=== PATIENT | female | born 1975 | race Caucasian/White ===

== ENCOUNTER 2021-01-14 19:12 | Observation (INO) | payer OTHER, SELFPAY ==
--- NOTE | ~2021-01-14 | US_ITS ---
EXAMINATION: US abdomen limited DATE: 01/15/2021 07:44 INDICATION: Acute cholecystitis TECHNIQUE: Multiple grayscale and Doppler ultrasound images of the abdomen were obtained. COMPARISON: CT dated 01/14/2021 FINDINGS: The pancreatic head and body are normal in appearance. The pancreatic tail is not visualized. Liver has normal echogenicity and contour, with a smooth surface. No liver lesion identified. No intrahepat ic biliary duct dilation suspected. Portal venous flow was seen in the hepatopetal, normal direction and has normal Doppler waveform. Multiple shadowing gallstones within the gallbladder which is dilate d to 4.9 cm diameter with mild wall thickening and trace pericholecystic fluid suspicious for acute c holecystitis. Sonographic Davis sign was reported as negative by the manager learning.The common bile monica t measures 3 mm in diameter which is normal. IMPRESSION: 1. No urolithiasis with dilated gallbladder, mild gallbladder wall thickening and trace pericholecyst ic fluid, all suspicious for acute cholecystitis. Sonographic Davis sign was reported as negative by the manager learning however patient was reportedly on analgesics which could result in false negative as sessment. Reviewed, dictated and finalized at location A. IMPRESSION: 1. No urolithiasis with dilated gallbladder, mild gallbladder wall thickening a nd trace pericholecystic fluid, all suspicious for acute cholecystitis. Sonogra phic Davis sign was reported as negative by the manager learning however patient wa s reportedly on analgesics which could result in false negative assessment.
--- NOTE | ~2021-01-14 | CT_ITS ---
EXAMINATION: CT abdomen pelvis w con DATE: 01/14/2021 20:42 INDICATION: Flank pain. Hematuria. TECHNIQUE: Computed tomography (CT) of the abdomen and pelvis was performed with 100 mL Omnipaque 350 intravenous contrast. Automated exposure control and iterative reconstruction technique were employe d. The dose-length product was 734.52 mGy-cm. COMPARISON: None. FINDINGS: The visualized portions of the lung bases demonstrate calcified left lung nodules, consiste nt with old granulomatous disease. No pleural effusion. The heart size is normal. No pericardial effu joesph. The liver is normal. Calcifications in the spleen are consistent with old granulomatous disease . The gallbladder is distended and demonstrates wall thickening, consistent with acute cholecystitis. The pancreas, adrenal glands, and kidneys are normal. There are no dilated loops of bowel. The appen dionisio is normal. There are no pathologically enlarged lymph nodes. There is no free intraperitoneal flu id. There is mild thoracolumbar spondylosis. IMPRESSION: 1. Acute cholecystitis. Reviewed, dictated and finalized at location A. IMPRESSION: 1. Acute cholecystitis.
[2021-01-14 19:22] VITALS: BP 148/74; PULSE 64; RESP 18; TEMP 36.6; O2SAT 100
--- NOTE | 2021-01-14 19:39 | PC.NURSE ---
pt presents to ed c/o pain to upper back bilaterally. reports she woke up with this pain 2 days ago. denies any urinary symptoms. hx of utis. denies hx of kidney stones. denies any other symptoms.
--- NOTE | 2021-01-14 19:46 | ED.BACK ---
HPI - Back Pain/Injury General Chief Complaint: Back Pain/Injury <Daphne Tee PA-C - Last Filed: 01/14/21 22:05> Stated Complaint: upper back pain <KELLY Thompson Last Filed: 01/14/21 22:05> Time Seen by Provider: 01/14/21 19:29 <KELLY Thompson Last Filed: 01/14/21 22:05> Source: patient <KELLY Thompson Last Filed: 01/14/21 22:05> Mode of arrival: ambulatory <KELLY Thompson Last Filed: 01/14/21 22:05> Limitations: no limitations <KELLY Thompson Last Filed: 01/14/21 22:05> History of Present Illness HPI Narrative: This is a 45 year old female that presents to the ER for mid back pain present since yesterday. No known injury or trauma. Reports pain is sharp and constant. She took Ibuprofen with little relief. Also reports upper abdominal discomfort. She was seen at the urgent care today and sent here for further evaluation. Denies fever, chest pain, shortness of breath, vomiting, dysuria, hematuria, or lower extremity edema. <KELLY Thomspon Last Filed: 01/14/21 22:05> Related Data Allergies/Adverse Reactions: Allergies Allergy/AdvReac Type Severity Reaction Status Date / Time No Known Allergies Allergy Unknown Verified 03/26/03 07:12 DENIES ANY DRUG,FOOD,OR Allergy Mild Uncoded 02/06/03 16:13 LATEX ALLERGIES <KELLY Thompson Last Filed: 01/14/21 22:05> Review of Systems Review of Systems: CONSTITUTIONAL: Denies fever CARDIOVASCULAR: Denies chest pain, or edema. RESPIRATORY: Denies dyspnea. GASTROINTESTINAL: Reports abdominal pain. Denies nausea, vomiting, or diarrhea. GENITOURINARY: Denies dysuria or hematuria. SKIN: Denies rash MUSCULOSKELETAL: Reports back pain, joint pain, and myalgia. NEUROLOGIC: Denies numbness, or weakness. <KELLY Thompson Last Filed: 09/03/21 22:05> All systems reviewed & are unremarkable except as noted in HPI and below <Daphne Tee PA-C - Last Filed: 01/14/21 22:05> [facility] Surgical History Surgical History: Surgical History (Updated 01/14/21 @ 19:50 by Daphne Tee PA-C) History of section <Daphne Tee PA-C - Last Filed: 01/14/21 22:05> Social History Social History: Social History (Updated 01/14/21 @ 19:49 by Daphne Tee PA-C) Substance use: never <Daphne Tee PA-C - Last Filed: 01/14/21 22:05> Exam Narrative: GENERAL: Well-appearing, well-nourished, and in no acute distress. HEAD: Normocephalic, atraumatic. EYES: PERRLA and EOMI. CHEST: Clear to auscultation. No respiratory distress. No wheezes rales or rhonchi HEART: Regular rate and rhythm. No murmur heard. Normal peripheral pulses. ABDOMEN: Soft, nondistended, normal active bowel sounds. Tender to palpation in the epigastrium, without guarding. No CVA tenderness EXTREMITIES: Normal range of motion. No edema. SKIN: Warm, dry, no rash. NEURO: No focal deficits. Alert and oriented x3. PSYCH: Normal mood and affect <Daphne Tee PA-C - Last Filed: 01/14/21 22:05> Course LEAD C DEVELOPER/PA Physician Supervision For this encounter, I have reviewed the PA documentation, treatment plan and medical decision making: And I have had [id number] time with the patient. On exam the abdomen is soft with tenderness in the right upper quadrant no tenderness right lower quadrant, left lower quadrant left upper quadrant no rebound or guarding discussed with patient plan for admission and evaluation by general surgery all questions were answered patient agreement at this time <Sanjeev Figueroa DO - Last Filed: 01/14/21 22:01> Consultations Consultation #1: Spoke with Dr. Gorman about patient and workup who will admit for further management of acute cholecystitis. Would patient to remain NPO, be started on fluids and antibiotics <Daphne Tee PA-C - Last Filed: 01/14/21 22:05> Date: 01/14/21 <Daphne Tee PA-C - Last Filed: 01/14/21 22:05> Time: :
[2021-01-14 19:57] LABS: Basophils Percent Auto 0.4 % (0.2-1.2); Eosinophils Absolute Auto 0.1 K/mm3 (0-0.3); Eosinophils Percent Auto 0.9 % (0-4.4); Hematocrit 37.9 % (37.0-47.0); Hemoglobin 11.9 g/dL (12.0-15.0); Immature Granulocyte Absolute 0.04 K/mm3 (0.00-0.031); Immature Granulocyte Percent A 0.4 % (0-0.5); Lymphocytes Absolute Auto 1.91 K/mm3 (0.9-3.2); Lymphocytes Percent Auto 19.4 % (18.3-44.2); Mean Corpuscular HGB Conc 31.4 g/dl (32-36); Mean Corpuscular Hemoglobin 26.2 pg (26-34); Mean Corpuscular Volume 83.3 fl (80-100); Mean Platelet Volume 10.3 fl (7.4-10.4); Monocytes Absolute Auto 0.5 K/mm3 (0.1-0.6); Monocytes Percent Auto 4.8 % (2.6-8.5); Neutrophils Absolute Auto 7.3 K/mm3 (1.3-6.7); Neutrophils Percent Auto 74.1 % (45.5-73.1); Platelet Count Result 284 k/mm3 (150-375); Red Blood Count 4.55 M/mm3 (4.2-5.4); Red Cell Distribution Width 15.8 % (11.5-14.5); White Blood Count 9.9 K/mm3 (4.5-10.0)
[2021-01-14 20:00] LABS: Add Urine Microscopic? YES; Appearance Urine Clear (Clear); Bilirubin Urine Negative (Negative); Blood Urine 1+ (Negative); Color Urine Colorless (Yellow); Glucose Urine UA Negative (Negative); Ketones Urine Negative (Negative); Leukocyte Esterase Ur Negative LEU/UL (Negative); Nitrate Urine Negative (Negative); Protein Urine Negative (Negative); Urobilinogen Urine Negative mg/dL (<2.0); WBC Urine 0-3 /hpf
[2021-01-14 20:02] VITALS: BP 141/75; PULSE 53; RESP 20; O2SAT 100
[2021-01-14 20:03] LABS: INR 0.9; Prothrombin Time 12.3 Seconds (11.1-14.7)
[2021-01-14 20:04] LABS: Partial Thromboplastin Time 27.2 SECONDS (22.3-36.8)
[2021-01-14] MEDS: MORPHINE SULFATE (*CRX) 4 MG/ML INJ IV PUSH ×2 (20:05→22:25)
[2021-01-14] MEDS: ONDANSETRON INJ 4 MG/2 ML VIAL IV PUSH (20:05)
[2021-01-14 20:06] LABS: Alanine Aminotransferase 15 U/L (4-35); Albumin Level 4.7 g/dL (3.5-5.1); Alkaline Phosphatase 62 U/L (38-126); Anion Gap 9 mmol/L (8-16); Aspartate Amino Transferase 29 U/L (14-36); Bilirubin,Total 0.5 mg/dL (0.2-1.3); Blood Urea Nitrogen 8 mg/dL (7-17); Calcium 9.6 mg/dL (8.4-10.2); Carbon Dioxide 26 mmol/L (22-30); Chloride 98 mmol/L (98-107); D Dimer 0.33 ug/mL (<0.48); Estimated Glomerular Filt Rate > 60; Glucose 107 mg/dL (65-110); Lipase 55 U/L (23-300); Potassium 3.7 mmol/L (3.4-5.0); Sodium 133 mmol/L (137-145)
[2021-01-14 20:08] LABS: Specific Grav Ur 1.004 (1.001-1.035)
[2021-01-14] MEDS: diazePAM INJ (*CRX) 10 MG/2 ML SYRINGE 5 MG IV PUSH (21:01)
[2021-01-14 21:33] VITALS: PULSE 55; RESP 16; O2SAT 98
[2021-01-14] MEDS: KETOROLAC 30 MG/ML VIAL (*BKC) IV PUSH (21:59)
[2021-01-14] MEDS: PROCHLORPERAZINE EDISYLATE 10 MG/2 ML VIAL IV PUSH (22:35)
--- NOTE | 2021-01-14 23:08 | ADMGEN ---
This patient, Di Gonzalez, was admitted to 2 Medical Room 260-01 @[id number] . Patient/family oriented to hospital policies and general routines including ID bracelet, bed and alarms, visiting hours, pain management, procedures, bathroom and other care routines, personal items, smoking policy, room service/diet, and visiting hours. Information on how to activate the Rapid Response Team has been discussed. Patient/Family are encouraged to report perceived risks to care and to ask questions if they do not understand what they are told or what they should do.
[2021-01-14 23:13] VITALS: BP 119/70; PULSE 58; RESP 20; TEMP 36; O2SAT 99
[2021-01-14 23:14] VITALS: BMI 34.9
[2021-01-14 23:15] VITALS: BP 119/70; PULSE 58; RESP 20; TEMP 36; O2SAT 99; BMI 34.9
[2021-01-14] MEDS: SODIUM CHLORIDE 0.9% IV 1,000 ML 125 ML IV CONT (23:29)
[2021-01-15] VITALS (17 sets, daily range): BP systolic 95–130; BP diastolic 57–69; PULSE 58–76; RESP 14–20; TEMP 36.3–36.6; O2SAT 97–100
[2021-01-15] MEDS: MORPHINE SULFATE (*CRX) 4 MG/ML INJ IV PUSH ×2 (00:57→04:22)
[2021-01-15] MEDS: ONDANSETRON INJ 4 MG/2 ML VIAL IV PUSH ×3 (00:57→12:05)
--- NOTE | 2021-01-15 07:20 | PM.IMHP ---
H&P: HPI History of Present Illness Date/Time: 01/15/21 07:20 Chief Complaint: Right flank and right upper quadrant pain Narrative: This is a 45-year-old woman who presented to the emergency department overnight with right upper quadrant abdominal pain. She states that on 01/13/2021 she woke up in the morning with back pain. Pain continued to progress throughout the day. She was also experiencing nausea and vomiting. Her pain was also located in the right upper quadrant region. She thought that maybe it was a kidney stone due to the back pain and went to the urgent care. She was then referred to the emergency department for further workup. She has never had pain like this before. She does not recall anything that she ate the night before that could have caused this pain. She does have a family history of gallbladder problems in her mother. Since being admitted she is feeling slightly improved. She last received pain meds about 3 hours ago and does not feel too much pain currently. Review of Systems Review of Systems: All systems reviewed & are unremarkable except as noted in HPI and below Eyes: Eyes: Denies change in vision ENT: Denies hearing loss, Denies neck pain and Denies sore throat Cardiovascular: Cardiovascular: Denies chest pain and Denies dyspnea Respiratory: Respiratory: Denies cough, Denies dyspnea and Denies wheezing Gastrointestinal: Gastrointestinal: Reports as per HPI Genitourinary: Genitourinary: Denies hematuria and Denies dysuria Musculoskeletal: Musculoskeletal: Denies arthralgias, Denies joint swelling and Denies neck pain Allergic/Immunologic: Allergic/Immunologic: Denies wheezing PMFSH Past Medical History Medical History Post herpetic neuralgia Surgical History Surgical History History of section History of open heart surgery Age 33 years old Family History Family History Mother Breast cancer Social History Social History Smoking status: Never smoker Alcohol intake: never Substance use: never Substance use type: does not use Spiritual care concerns: No Meds Home Medications and Allergies Home Medications Medication Instructions Recorded Confirmed Type alprazolam 0.25 mg PO HS PRN 01/14/21 01/14/21 History gabapentin 300 mg PO BID PRN 01/14/21 01/14/21 History Allergies Allergy/AdvReac Type Severity Reaction Status Date / Time egg Allergy Diarrhea Verified 01/14/21 23:15 soy Allergy Nausea Verified 01/14/21 23:15 Vital Signs Vital Signs - 24 hr 01/14/21 19:22 01/14/21 20:02 01/14/21 21:33 Temperature 36.6 C Pulse Rate 64 53 L 55 L Respiratory Rate 18 20 16 Blood Pressure 148/74 H 141/75 H Pulse Oximetry 100 100 98 01/14/21 23:13 01/14/21 23:15 01/15/21 05:15 Temperature 36.0 C L 36.0 C L 36.4 C Pulse Rate 58 L 58 L 58 L Respiratory Rate 20 20 20 Blood Pressure 119/70 119/70 125/68 Pulse Oximetry 99 99 100 Exam Const: General: alert; No acute distress Orientation/consciousness: patient oriented x3 Limitations: no limitations HENMT: Head: normocephalic and atraumatic Ears: hearing grossly normal bilaterally General nose exam: Normal external nose present and Normal nares present Mouth: Yes Normal oral and palatal mucosa present and Yes moist mucous membranes Eyes: General: appearance normal, both eyes and all related structures Conjunctivae: conjunctivae normal Sclera: sclerae normal Pupils: Equal, round and reactive pupils present EOM: EOMs intact bilaterally Neck: Neck: normal visual inspection, full ROM, no lymphadenopathy, supple and no JVD Lymphatic: no lymphadenopathy noted Chest: Chest palpation & inspection: normal inspection of the chest Resp: Effort & Inspection: normal respi
[2021-01-15] MEDS: SODIUM CHLORIDE 0.9% IV 1,000 ML 125 ML IV CONT (07:48)
[2021-01-15] MEDS: KETOROLAC 30 MG/ML VIAL (*BKC) IV PUSH (07:50)
--- NOTE | 2021-01-15 08:33 | WPDHPUPDATE1 ---
History and Physical Update Update Date/Time: 01/15/21 08:33 I spoke to patient after u/s. She does have evidence of gallstones and cholecystitis. She would like to proceed with surgery. I have recommended Laparoscopic cholecystectomy, possible open. History and Physical has been reviewed, including an updated exam of the patient. There are NO changes in the patient's condition. Risks, benefits, and alternatives have been discussed and questions answered. Patient agrees to proceed with procedure.
--- NOTE | 2021-01-15 08:35 | PC.NURSE ---
To OR via bed. Report given to Arminda KOLB LACE ROLLER OPERATOR. Voiding without difficulty.
[2021-01-15] MEDS: LACTATED RINGERS 1,000 ML 30 ML IV CONT (08:45)
--- NOTE | 2021-01-15 08:56 | WPDANESEPPF ---
Anes - Initial Pre Proc Eval Procedure: Operation Date: 01/15/21 09:15 Proposed Procedures p Laparoscopic Cholecystectomy - Hipolito Gorman DO Date/Time: 01/15/21 08:56 Surgeon: Hipolito Gorman DO Pre Op Diagnosis: Acute Cholecystitis Patient Data Age: 45 Gender: F Height: 1.6 m Weight: 89.4 kg Last Vital Signs Temp 36.4 C 01/15/21 05:15 Pulse 58 L 01/15/21 05:15 Resp 20 01/15/21 05:15 BP 125/68 01/15/21 05:15 Pulse Ox 100 01/15/21 05:15 Allergies Allergy/AdvReac Type Severity Reaction Status Date / Time egg Allergy Diarrhea Verified 01/14/21 23:15 soy Allergy Nausea Verified 01/14/21 23:15 Home Medications Medication Instructions Recorded Confirmed Type alprazolam 0.25 mg PO HS PRN 01/14/21 01/14/21 History gabapentin 300 mg PO BID PRN 01/14/21 01/14/21 History Laboratory Tests 01/14/21 01/14/21 01/14/21 19:49 19:49 19:49 WBC 9.9 K/mm3 K/mm3 (4.5-10.0) RBC 4.55 M/mm3 M/mm3 (4.2-5.4) Hgb 11.9 g/dL L g/dL (12.0-15.0) Hct 37.9 % % (37.0-47.0) MCV 83.3 fl fl (80-100) MCH 26.2 pg pg (26-34) MCHC 31.4 g/dl L g/dl (32-36) RDW 15.8 % H % (11.5-14.5) Plt Count 284 k/mm3 k/mm3 (150-375) MPV 10.3 fl fl (7.4-10.4) Immature Gran % (Auto) 0.4 % % (0-0.5) Neut % (Auto) 74.1 % H % (45.5-73.1) Lymph % (Auto) 19.4 % % (18.3-44.2) Josephine % (Auto) 4.8 % % (2.6-8.5) Eos % (Auto) 0.9 % % (0-4.4) Baso % (Auto) 0.4 % % (0.2-1.2) Lymph # (Auto) 1.91 K/mm3 K/mm3 (0.9-3.2) Josephine # (Auto) 0.5 K/mm3 K/mm3 (0.1-0.6) Eos # (Auto) 0.1 K/mm3 K/mm3 (0-0.3) Baso # (Auto) 0.0 K/mm3 K/mm3 (0.0-0.1) Abs Immat Gran (auto) 0.04 K/mm3 H K/mm3 (0.00-0.031) Absolute Neuts (auto) 7.3 K/mm3 H K/mm3 (1.3-6.7) Absolute Nucleated RBC 0.0 K/mm3 K/mm3 (0.0-0.012) Nucleated RBC % 0.0 % % (0.0-0.2) PT 12.3 Seconds Seconds (11.1-14.7) INR 0.9 APTT 27.2 SECONDS SECONDS (22.3-36.8) D-Dimer 0.33 ug/mL ug/mL (<0.48) Sodium Potassium Chloride Carbon Dioxide Anion Gap BUN Creatinine Estim Creat Clear Calc Estimated GFR Glucose Calcium Total Bilirubin AST ALT Alkaline Phosphatase Total Protein Albumin Lipase Urine Color Colorless (Yellow) Urine Appearance Clear (Clear) Urine pH 6.0 (5.0-9.0) Ur Specific Hewitt 1.004 (1.001-1.035) Urine Protein Negative mg/dL mg/dL (Negative) Urine Glucose (UA) Negative mg/dL mg/dL (Negative) Urine Ketones Negative mg/dL mg/dL (Negative) Ur Blood (Man) 1+ H (Negative) Urine Nitrate Negative (Negative) Urine Bilirubin Negative (Negative) Urine Urobilinogen Negative mg/dL mg/dL (<2.0) Leukocyte Esterase Rfl Negative KAY/UL KAY/UL (Negative) Urine WBC 0-3 /hpf /hpf 01/14/21 19:49 WBC RBC Hgb Hct MCV MCH MCHC RDW Plt Count MPV Immature Gran % (Auto) Neut % (Auto) Lymph % (Auto) Josephine % (Auto) Eos % (Auto) Baso % (Auto) Lymph # (Auto) Josephine # (Auto) Eos # (Auto) Baso # (Auto) Abs Immat Gran (auto) Absolute Neuts (auto) Absolute Nucleated RBC Nucleated RBC % PT INR APTT D-Dimer Sodium 133 mmol/L L mmol/L (137-145) Potassium 3.7 mmol/L mmol/L (3.4-5.0) Chloride 98 mmol/L mmol/L (98-107)
[2021-01-15] MEDS: ceFAZolin 2 GM/D5W 50 ML 2 GM/50 ML BAG IVPB (09:15)
[2021-01-15] MEDS: BUPIVACAINE/EPINEPHRINE 0.25% 50 ML VIAL 30 ML INFILTRATE (09:31)
--- NOTE | 2021-01-15 10:13 | W.PM.PROC2 ---
Procedure Note - Detailed Date of Procedure 01/15/21 Pre-op Diagnosis Acute Cholecystitis Post-op Diagnosis same Procedure Performed Laparoscopic Cholecystectomy Surgeon Hipolito Gorman, DO Anesthesia general and local (0.25% bupivacaine with epinephrine) Indications This is a 45-year-old woman who presented to the emergency department overnight with right upper quadrant abdominal pain for the past 2 days. Her white blood count and liver enzymes were normal, but CT of her abdomen and pelvis showed evidence of acute cholecystitis. A gallbladder ultrasound was also obtained this morning and this confirmed signs of acute cholecystitis with cholelithiasis. Discussions were made with the patient about treatment options and decision was made to proceed with laparoscopic cholecystectomy, possible open. Findings Laparoscopic cholecystectomy was performed. The gallbladder appeared tense and dilated. It was aspirated with a laparoscopic aspirating needle to decompress the gallbladder. There were several medium-sized gallstones within the gallbladder and the gallbladder itself was very elongated and enlarged. The gallbladder wall was indurated and edematous. The cystic duct appeared normal in size. The gallbladder was removed and sent to the lab for pathology. Description of Procedure Procedure as well as risks, benefits, and alternatives were discussed with patient. Written consent was obtained and placed in chart prior to procedure. The patient was brought back to surgical suite. Patient was placed in supine position on operating table. Time-out was done to confirm patient and procedure. Patient was then intubated by the anesthesia department. Abdomen was prepped and draped in sterile fashion using chlorhexidine prep. 0.5% bupivacaine with epinephrine was infiltrated at each site of incision. A 5 millimeter incision was made near the umbilicus, and a 5 millimeter Optiview trocar was advanced through the abdominal layers under direct visualization. Once inside the abdominal cavity, carbon dioxide was insufflated to create a pneumoperitoneum. The camera was inserted and the abdomen was inspected. No immediate abnormalities were identified. The patient was placed in reverse Trendelenburg position and rotated slightly to the left. An 11 millimeter incision was made in the subxiphoid region, and an 11 millimeter trocar was inserted under direct visualization. Two 5 millimeter incisions were made in the right upper quadrant, and two 5 millimeter trocars were inserted under direct visualization. The gallbladder was identified and grasped at the fundus and retracted superiorly. It was then grasped at the infundibulum retracted laterally. Careful dissection around the neck of the gallbladder was performed using blunt dissection with a [place] grasper and hook electrocautery. The cystic duct was identified, and a window was created behind it. The cystic artery was also identified and a window was created behind it. The critical view of safety was identified, visualizing the cystic duct running directly into the neck of the gallbladder, and the cystic artery running directly into the wall of the gallbladder. A 5 millimeter clip clinical molecular geneticist was then used to place 2 clips proximally and 1 clip distally on both the cystic duct and cystic artery. They were then both transected using endoscopic scissors. Once safely away from the francisco hepatitis, the gallbladder was dissected free from the liver bed using hook electrocautery. Hemostasis was achieved along the way. The gallbladder was removed completely and then removed through the subxiphoid port. The liver bed was then inspected. Hemostasis appeared adequate, and our clips appeared secure. The area was gently irrigated with sterile saline. No other abnormalities were seen. The patient was flattened out in bed, and 1 final inspection was made around the abdominal cavity. The subxiphoid port was removed, and a Reema
[2021-01-15] MEDS: fentaNYL CITRATE INJ (*CRX) 100 MCG/2 ML VIAL 25 MCG IV PUSH (11:01)
--- NOTE | 2021-01-15 11:30 | SUR.PHASEI ---
PIV PLACEMENT UNSUCCESSFUL TO RIGHT WRIST. WALL MIRROR DEPARTMENT SUPERVISOR PRIYANKA HERE TO ATTEMPT PLACEMENT.
--- NOTE | 2021-01-15 12:05 | PC.NURSE ---
Received from OR via bed.
[2021-01-15] MEDS: HYDROcodone/acetaminophen (*CRX) 5-325 MG TABLET 1 TAB PO (15:57)
--- NOTE | 2021-01-15 17:35 | PM.DS ---
DS: Admitting Diagnosis Discharge Date 01/15/21 Admitting Diagnosis acute cholecystitis DS: Discharge Diagnosis Discharge Diagnosis (1) Acute cholecystitis: Code(s): K81.0 - Acute cholecystitis Status: Acute (2) BMI 34.0-34.9,adult: Code(s): Z68.34 - Body mass index [BMI] 34.0-34.9, adult Status: Acute DS: Summary Hospital Course Reason for hospitalization: acute cholecystitis Hospital Course: this is a 45-year-old woman who presented to the emergency department on 01/14/2021 with complaints of upper abdominal pain. Pain had started over the last couple days and progressively worsened. CT of her abdomen and pelvis in the emergency department showed evidence of acute cholecystitis. She was admitted for further treatment. On 01/15/2021 she underwent gallbladder ultrasound which showed evidence of acute calculous cholecystitis. Discussions were made with the patient about treatment options and decision was made to proceed with laparoscopic cholecystectomy. She underwent laparoscopic cholecystectomy on 01/15/2021. She was returned to the surgical floor postoperatively and diet and activity were advanced as tolerated. She was then discharged once her pain was controlled, vitals remained stable, she was tolerating her diet, and she was ambulating in the halls. Status at Discharge Functional status at discharge: independent ambulation Overall status at discharge: patient is progressing back to baseline Time Spent with Patient Time attestation: Total time spent providing and/or coordinating discharge services: Time spent: Less than 30 minutes Exam Narrative: Unchanged from preop exam except for surgical changes DS: Data Data Completed and Pending Completed studies during hospitalization: Pending at discharge 01/15/21 09:45 Surgical [PTH] Routine Imaging Radiologist's impression: ITS Impressions Abdomen/Pelvis CT 01/14/21 20:49 IMPRESSION: 1. Acute cholecystitis. Abdomen Ultrasound 01/15/21 07:47 IMPRESSION: 1. No urolithiasis with dilated gallbladder, mild gallbladder wall thickening and trace pericholecystic fluid, all suspicious for acute cholecystitis. Sonographic Davis sign was reported as negative by the business performance specialist however patient was reportedly on analgesics which could result in false negative assessment. Discharge Plan Discharge Attending physician on discharge: Hipolito Hussein Consulting providers: Vivek Winn ; Bassam Barrios V. Discharging Clinician: Wikiera,Hipolito H. Anticipated Discharge Date/Time: 01/15/21 14:00 Patient Disposition: Home, Self-Care Activity: other - see discharge instructions Diet: low fat Wound Care Instructions: follow printed instructions Discharge Instructions: DISCHARGE INSTRUCTION SHEET FOR HERNIA, GALLBLADDER AND APPENDIX SURGERIES DR. HUSSEIN PATIENT TO TAKE HOME 1. May shower in 24 hours, no soaking in bath x 2weeks. 2. Call office for: Wound increasingly painful or bleeding Vomiting Fever of greater than 101 degrees 3. If no bowel movement for three days, take 1 oz. (30 ml) Milk of Magnesia or MiraLax 17g 1 to 2 times daily. 4. No heavy lifting > 10-15 pounds x weeks for hernia repairs and 2 weeks for laparoscopic cholecystectomy or appendectomy. 5. No driving for 3 days or while taking narcotic pain medications. 6. Ice to surgical site for 48 hours (30 min on, then 30 min off). 7. Up walking 10-30 minutes three times per day. 8. Resume previous home medications. 9. Follow-up 10-14 days in office for wound check or as previously scheduled. [phone]) 10. Oral pain medications prescription to be sent to pharmacy. Take Tylenol 500mg every 6 hours and Ibuprofen 600mg every 6 hours for the first 2 days, then as needed. 11. NUTRITION: Start out by drinking fluids and increase your diet as tolerated. If y
== END 2021-01-15 17:55 | disposition home or self-care (01) ==
LOC: ANHED 22:00 → ANH2MED 22:36
PROVIDERS: Physician Assistant; Admitting Provider Surgery; Emergency Provider Emergency Medicine; PCP Nurse Practitioner Adult Health; Visit Provider Surgery
PROC: 0FT44ZZ Resection of Gallbladder, Percutaneous Endoscopic Approach (ICD-10-PCS; CPT 47562; principal; 2021-01-15 09:15)
DX: K80.10 Calculus of gallbladder with chronic cholecystitis without obstruction (principal)
CPT/HCPCS: 47562; 36415; 74177; 76705; 80053; 81001; 81025; 83690; 85025; 85380; 85610; 85730; 88304; 96361; 96365; 96374; 96375; 96376; 99285; A9270; G0378; J0131; J0690; J0780; J1100; J1885; J2270; J2405; J2543; J2704; J2710; J3010; J3360; J7030; J7120; Q9967

== ENCOUNTER 2021-10-08 14:48 | Emergency (ER) | payer OTHER, SELFPAY ==
[2021-10-08 14:53] VITALS: BP 122/75; PULSE 86; RESP 14; TEMP 36.6; O2SAT 100
--- NOTE | 2021-10-08 15:03 | ED.URI ---
HPI - URI/Sore Throat General Chief Complaint: Upper Respiratory Infection Stated Complaint: sore throat and fatigue Time Seen by Provider: 10/08/21 14:57 Source: patient Mode of arrival: ambulatory Limitations: no limitations History of Present Illness HPI Narrative: Di is a 45-year-old female patient presenting to the clinic today with complaints of fatigue and sore throat times 1 week. She denies any fever or chills. She denies any known exposure to anyone with COVID, flu or, or strep. Significant other reports that there has been other family members with a cough. MD elicited complaint: sore throat Related Data Home Medications Medication Instructions Recorded Confirmed alprazolam 0.25 mg tablet 0.25 mg PO HS PRN Anxiety 01/14/21 01/28/21 gabapentin 300 mg capsule 300 mg PO BID PRN Pain 01/14/21 01/28/21 Allergies Allergy/AdvReac Type Severity Reaction Status Date / Time egg Allergy Diarrhea Verified 01/28/21 09:22 soy Allergy Nausea Verified 01/28/21 09:22 Review of Systems Review of Systems: Pertinent positives per HPI. Patient denies any fever, chills, rash, headache, visual changes, dizziness, cough, shortness of breath, chest pain, palpitations, nausea, vomiting, diarrhea, constipation, abdominal pain, or any urinary issues. COUNTS INCLUDE 234 BEDS AT THE [facility] Past Medical History Medical History Anxiety Post herpetic neuralgia Surgical History Surgical History History of section History of open heart surgery Age 33 years old Hx laparoscopic cholecystectomy 01/14/21 Family History Family History Mother Breast cancer Social History Social History Smoking status: Never smoker Alcohol intake: never Substance use: never Substance use type: does not use Spiritual care concerns: No Comments At the time of my signature, I reviewed and agree with the nursing past medical, surgical, social, and family history. There is no relevant family history pertinent to the patient complaint. Exam Narrative: General: Well-developed, well nourished, in no apparent distress Head: Normocephalic, atraumatic Eyes: Pupils equally round and reactive to light bilaterally, EOM intact, sclera and conjunctive clear, no discharge, lids normal Ears: TMs intact and, ear canals clear, no drainage, grossly hearing normal. Nose: Nares patent, clear nasal discharge, no inflammation, no sinus tenderness. Mouth: Oropharynx without lesions or masses, good dentition, MMM. Oropharynx mildly red with postnasal drip Neck: Supple, trachea midline, no enlargement of anterior or posterior cervical nodes, no thyroid masses or goiter palpable. Cardio: Regular rate and rhythm, s1 and s2 normal, no murmur appreciated. Resp: Clear to auscultation bilaterally anteriorly and posteriorly, no rhonchi, rales, wheezing or rubs Course Course Emergency Course: Portions of this record may have been created with voice recognition software. Level of Care: Express Care Visit Vital Signs Vital signs: Vital Signs Temperature 36.6 C 10/08/21 14:53 Pulse Rate 86 10/08/21 14:53 Respiratory Rate 14 10/08/21 14:53 Blood Pressure 122/75 10/08/21 14:53 Pulse Oximetry 100 10/08/21 14:53 Oxygen Delivery Room Air 10/08/21 14:53 Temperature 36.6 C 10/08/21 14:53 Pulse Rate 86 10/08/21 14:53 Respiratory Rate 14 10/08/21 14:53 Blood Pressure 122/75 10/08/21 14:53 Pulse Oximetry 100 10/08/21 14:53 Oxygen Delivery Room Air 10/08/21 14:53 Vital signs reviewed MDM - URI/Sore Throat MDM Narrative Medical decision making narrative: At the time of visit patient is resting comfortably on the exam table. She reports fatigue sore throat. She has been taking Benadryl thro
== END 2021-10-08 15:25 | disposition home or self-care (01) ==
PROVIDERS: Emergency Provider Nurse Practitioner Family; PCP Nurse Practitioner Adult Health
DX: J02.9 Acute pharyngitis, unspecified (principal); F41.9 Anxiety disorder, unspecified
CPT/HCPCS: 87081; 87880; 99213; G0463

== ENCOUNTER 2022-07-28 10:38 | Emergency (ER) | payer OTHER, SELFPAY ==
[2022-07-28 10:46] VITALS: BP 130/86; PULSE 73; RESP 18; TEMP 36.6; O2SAT 100
--- NOTE | 2022-07-28 10:46 | ED_ITS ---
HPI - General Adult General Stated complaint: poss kidney infection Source: patient and RN notes reviewed History of Present Illness HPI narrative: 46 yo F presents to urgent care [facility] complaints of right flank and right mid abdominal pain. Pt states she has been having this discomfort for a few months now. Denies any burning with urination. Pt states she had some right mid back pain the other day as well. Pt denies any fevers, chills, mid lower abdominal pain, N/V/D/C, or chest pain. Pt states her pain is relieved after she takes the OTC Azo. Related Data Home Medications Medication Instructions Recorded Confirmed alprazolam 0.25 mg tablet 0.25 mg PO HS 07/28/22 07/28/22 gabapentin 300 mg capsule 300 mg PO BID 07/28/22 07/28/22 Allergies Allergy/AdvReac Type Severity Reaction Status Date / Time No Known Allergies Allergy Verified 07/28/22 11:02 Review of Systems Review of Systems: Pertinent positives and pertinent negatives per HPI. PMFSH Comments At the time of my signature, I reviewed and agree with the nursing past medical, surgical, social, and family history. There is no relevant family history pertinent to the patient complaint. Exam Narrative: GENERAL: This is a well-nourished, well-developed patient, in no apparent distress. HEAD: normocephalic, atraumatic. EYES: PERRL. Sclera clear/white. Vision is grossly intact. EARS: External ears normal, auditory canals clear and without drainage. Hearing grossly intact. NOSE: External nose normal with no obvious nasal discharge, no rhinorrhea. NECK: Neck supple, non-tender without lymphadenopathy, masses or thyromegaly. CARDIOVASCULAR: Regular rate. RESPIRATORY: No respiratory distress GASTROINTESTINAL: Abdomen soft, non-tender, nondistended. Bowel sounds are active. No hepato-splenomegaly, or palpable masses. No guarding. SKIN: warm, intact with no suspicious lesions or rash, good texture and turgor. NEURO: awake, alert, and oriented to person, place and time. There were no obvious focal neurologic abnormalities. BACK: Nontender without deformity or crepitance. No flank tenderness. Course Course Level of Care: Express Care Visit Vital Signs Vital signs: Reviewed. Medical Decision Making MDM Narrative Medical decision making narrative: IF your symptoms don't resolve, worsen, or you develop any new symptoms, go to the emergency dept for further evaluation. Keep your appt with your electrician supervisor substation. Differential Diagnosis Differential Diagnosis: UTI, bladder CA, nephrolithiasis Lab Data Lab results reviewed: Yes I reviewed the patient's lab results. Critical Care Time Critical Care Time Critical Care Time: No Discharge Plan Discharge Clinical Impression: Abdominal pain Qualifiers: Abdominal location: right upper quadrant Qualified Code(s): R10.11 - Right upper quadrant pain Hematuria Qualifiers: Hematuria type: unspecified type Qualified Code(s): R31.9 - Hematuria, unspecified Patient Disposition: Home, Self-Care Condition: Stable Instructions: Abdominal Pain (ED) Additional Instructions: IF your symptoms don't resolve, worsen, or you develop any new symptoms, go to the emergency dept for further evaluation. Keep your appt with your electrician supervisor substation. Follow-up/Referrals: PHYSICIAN NOT ON STAFF,NONSTAFF [Primary Care Provider] - Time of Disposition: 11:11
[2022-07-28 10:55] VITALS: BP 130/86; PULSE 73; RESP 18; TEMP 36.6; O2SAT 100
== END 2022-07-28 11:15 | disposition home or self-care (01) ==
PROVIDERS: Emergency Provider Nurse Practitioner Family
DX: R10.11 Right upper quadrant pain (principal); R31.9 Hematuria, unspecified
CPT/HCPCS: 81003; 87086; 99213; G0463

== ENCOUNTER 2022-11-17 02:56 | Day surgery (SDC) | payer OTHER, SELFPAY ==
[2022-11-07 12:22] VITALS: BMI 33.7
[2022-11-17 10:22] VITALS: BP 110/78; PULSE 66; RESP 18; TEMP 36.2; O2SAT 100
[2022-11-17] MEDS: LACTATED RINGERS 1,000 ML 150 ML IV CONT (10:33)
--- NOTE | 2022-11-17 10:37 | PM.HPGS ---
History of Present Illness History of Present Illness Consent: Risks, benefits, and alternatives have been discussed and questions answered. Patient agrees to proceed with procedure. Chief complaint: neoplasm screening Narrative: Di Gonzalez is a 46 year old female referred for colon cancer screening. Review of Systems Review of Systems: All systems reviewed & are unremarkable except as noted in HPI and below PMFSH Past Medical History Medical History Anxiety Neuropathy PCOS (polycystic ovarian syndrome) Post herpetic neuralgia Surgical History Surgical History History of section x4 History of open heart surgery Age 33 years old History of tubal ligation Hx laparoscopic cholecystectomy 01/14/21 Family History Family History Mother Breast cancer Depression Father Alcoholism Social History Social History Smoking status: Never smoker Alcohol intake: never Substance use: never Substance use type: does not use Lack of Transportation: No Lack of Food: Never True Current Housing: I Have Housing Concerned About Future Housing: No Difficulty Paying Gas/Electric Bills: No Difficulty Paying for Meds: No Currently Unemployed: No Education: Bachelor's Degree Difficulty w/ Childcare or Family Care: No Living arrangements: with family Spiritual care concerns: No Meds Home Medications and Allergies Home Medications Medication Instructions Recorded Confirmed Type gabapentin 300 mg capsule 300 mg PO BID 07/28/22 11/07/22 History cranberry 500 mg capsule 1,000 mg PO DAILY 11/07/22 11/07/22 History creatine monohydrate 750 mg PO DAILY 11/07/22 11/07/22 History saffron extract 88.5 mg PO DAILY 11/07/22 11/07/22 History alprazolam 0.25 mg tablet 0.25 mg PO HS PRN Anxiety #30 tabs 11/08/22 11/17/22 Rx Allergies Allergy/AdvReac Type Severity Reaction Status Date / Time egg Allergy Intermediate Gastrointestinal Verified 11/17/22 10:18 Upset soy Allergy Intermediate Gastrointestinal Verified 11/17/22 10:18 Upset Vital Signs Vital Signs - 24 hr 11/17/22 10:22 Temperature 36.2 C L Pulse Rate 66 Respiratory Rate 18 Blood Pressure 110/78 Pulse Oximetry 100 Oxygen Delivery Room Air Exam Const: General: alert Orientation/consciousness: patient oriented x3 Resp: Auscultation: clear to auscultation bilaterally Cardio: Rhythm: regular rhythm GI: GI Palp: Yes Soft to palpation and No Tenderness to palpation present (GI) Neuro: General: patient oriented x3 Assessment and Plan Assessment and plan (1) Colon cancer screening: Code(s): Z12.11 - Encounter for screening for malignant neoplasm of colon Status: Acute Assessment and Plan: Colonoscopy with possible biopsy or polypectomy or cautery or injection of substances.
--- NOTE | 2022-11-17 11:22 | WPDANESEPPF ---
Anes - Initial Pre Proc Eval Procedure: Operation Date: 11/17/22 11:30 Proposed Procedures p Screening Colonoscopy - Gentry Peraza MD Date/Time: 11/17/22 11:22 Surgeon: Gentry Peraza MD Pre Op Diagnosis: neoplasm screening Patient Data Age: 46 Gender: F Height: 1.6 m Weight: 88.8 kg Last Vital Signs Temp 97.1 F L 11/17/22 10:22 Pulse 66 11/17/22 10:22 Resp 18 11/17/22 10:22 BP 110/78 11/17/22 10:22 Pulse Ox 100 11/17/22 10:22 O2 Del Method Room Air 11/17/22 10:22 Allergies Allergy/AdvReac Type Severity Reaction Status Date / Time egg Allergy Intermediate Gastrointestinal Verified 11/17/22 10:18 Upset soy Allergy Intermediate Gastrointestinal Verified 11/17/22 10:18 Upset Home Medications Medication Instructions Recorded Confirmed Type gabapentin 300 mg capsule 300 mg PO BID 07/28/22 11/07/22 History cranberry 500 mg capsule 1,000 mg PO DAILY 11/07/22 11/07/22 History creatine monohydrate 750 mg PO DAILY 11/07/22 11/07/22 History saffron extract 88.5 mg PO DAILY 11/07/22 11/07/22 History alprazolam 0.25 mg tablet 0.25 mg PO HS PRN Anxiety #30 tabs 11/08/22 11/17/22 Rx Patient hx anesthesia problems: none Family hx anesthesia problems: none Results Review: All pre-operative results and documents have been reviewed as part of the pre-operative evaluation. [facility] Past Medical History Medical History Anxiety Neuropathy PCOS (polycystic ovarian syndrome) Post herpetic neuralgia Surgical History Surgical History History of section x4 History of open heart surgery Age 33 years old History of tubal ligation Hx laparoscopic cholecystectomy 01/14/21 Family History Family History Mother Breast cancer Depression Father Alcoholism Social History Social History Smoking status: Never smoker Alcohol intake: never Substance use: never Substance use type: does not use Lack of Transportation: No Lack of Food: Never True Current Housing: I Have Housing Concerned About Future Housing: No Difficulty Paying Gas/Electric Bills: No Difficulty Paying for Meds: No Currently Unemployed: No Education: Bachelor's Degree Difficulty w/ Childcare or Family Care: No Living arrangements: with family Spiritual care concerns: No Anes - Eval Final PreProcedure Day of Procedure 11/17/22 11:22 Patient weight: obese Heart: regular rate and rhythm Lungs: clear to auscultation Airway: Mallampati scale class II Neurological: alert and oriented Last oral intake: >/= 8 hours ASA classification: II Emergent: no Anesthetic plan: proceed Anesthesia type and monitoring: general GIVS and standard monitoring Results Review: All pre-operative results and documents have been reviewed as part of the pre-operative evaluation. Informed Consent: The patient's anesthetic plan and its attendant risks and benefits were discussed with the patient/family/POA. Questions were solicited and answers provided to the satisfaction of the patient/family/POA.
[2022-11-17 11:45] VITALS: BP 97/54; PULSE 72; RESP 19; O2SAT 100
[2022-11-17 11:55] VITALS: BP 108/69; PULSE 55; RESP 26; O2SAT 100
[2022-11-17 12:05] VITALS: BP 98/65; PULSE 54; RESP 16; O2SAT 98
== END 2022-11-17 12:15 | disposition home or self-care (01) ==
PROVIDERS: PCP Family Medicine; Visit Provider Internal Medicine Gastroenterology
PROC: 0DJD8ZZ Inspection of Lower Intestinal Tract, Via Natural or Artificial Opening Endoscopic (ICD-10-PCS; CPT 45378; principal; 2022-11-17 11:30)
DX: Z12.11 Encounter for screening for malignant neoplasm of colon (principal); F41.9 Anxiety disorder, unspecified; G62.9 Polyneuropathy, unspecified; E66.9 Obesity, unspecified; Z68.34 Body mass index [BMI] 34.0-34.9, adult
CPT/HCPCS: 45378; J2001; J2704; J7120

== ENCOUNTER 2022-11-30 15:41 | Outpatient (CLI) | payer OTHER, SELFPAY ==
--- NOTE | ~2022-11-30 | MM_ITS ---
EXAMINATION: MM screening zechariah BI w oscar HISTORY: Screening TECHNIQUE: Craniocaudal and mediolateral oblique 3-D tomosynthesis images were obtained and synthetic 2-D images were generated. CAD analysis was submitted and interpreted. COMPARISON: No prior mammogram is available for comparison at this institution. BREAST PARENCHYMAL COMPOSITION: There are scattered areas of fibroglandular density. FINDINGS: There is no evidence of suspicious mass, calcification, or architectural distortion to sugg est malignancy in either breast. There has been no suspicious interval change. IMPRESSION: 1. No mammographic evidence of malignancy. 2. Recommend routine screening mammography in one year. BI-RADS Category 1: Negative Reviewed, dictated and finalized at location A.
== END 2022-11-30 15:42 | disposition home or self-care (01) ==
PROVIDERS: PCP Family Medicine; Visit Provider Family Medicine
DX: Z12.31 Encounter for screening mammogram for malignant neoplasm of breast (principal)
CPT/HCPCS: 77063; 77067

== ENCOUNTER 2022-12-13 11:45 | Outpatient (CLI) | payer OTHER, SELFPAY ==
[2022-12-13 19:07] LABS: Alanine Aminotransferase 17 U/L (6-35); Albumin Level 4.2 g/dL (3.5-5.1); Alkaline Phosphatase 41 U/L (38-126); Anion Gap 6 mmol/L (8-16); Aspartate Amino Transferase 43 U/L (14-36); Bilirubin,Total 0.4 mg/dL (0.2-1.3); Blood Urea Nitrogen 17 mg/dL (7-17); Calcium 8.8 mg/dL (8.4-10.2); Carbon Dioxide 30 mmol/L (22-30); Chloride 102 mmol/L (98-107); Cholesterol 189 mg/dL (0-200); Estimated Glomerular Filt Rate > 60; Glucose 89 mg/dL (65-110); HDL Direct 31 mg/dL; Potassium 4.1 mmol/L (3.4-5.0); Sodium 138 mmol/L (137-145); Triglycerides 107 mg/dL (<150)
[2022-12-13 19:09] LABS: Basophils Percent Auto 0.6 % (0.2-1.2); Eosinophils Absolute Auto 0.2 K/mm3 (0-0.3); Eosinophils Percent Auto 2.8 % (0-4.4); Hematocrit 39.8 % (37.0-47.0); Hemoglobin 12.9 g/dL (12.0-15.0); Immature Granulocyte Absolute 0.01 K/mm3 (0.00-0.031); Immature Granulocyte Percent A 0.2 % (0-0.5); Lymphocytes Absolute Auto 2.34 K/mm3 (0.9-3.2); Lymphocytes Percent Auto 36.6 % (18.3-44.2); Mean Corpuscular HGB Conc 32.4 g/dl (32-36); Mean Corpuscular Hemoglobin 30.5 pg (26-34); Mean Corpuscular Volume 94.1 fl (80-100); Mean Platelet Volume 10.5 fl (7.4-10.4); Monocytes Absolute Auto 0.4 K/mm3 (0.1-0.6); Monocytes Percent Auto 6.3 % (2.6-8.5); Neutrophils Absolute Auto 3.4 K/mm3 (1.3-6.7); Neutrophils Percent Auto 53.5 % (45.5-73.1); Platelet Count Result 239 k/mm3 (150-375); Red Blood Count 4.23 M/mm3 (4.2-5.4); Red Cell Distribution Width 12.1 % (11.5-14.5); White Blood Count 6.4 K/mm3 (4.5-10.0)
[2022-12-13 19:18] LABS: LDL Cholesterol Direct 127 mg/dL
== END 2022-12-13 11:46 | disposition home or self-care (01) ==
LOC: ANHGOSHLAB 11:46
PROVIDERS: PCP Family Medicine; Visit Provider Family Medicine
DX: F41.9 Anxiety disorder, unspecified (principal)
CPT/HCPCS: 36415; 80053; 80061; 84443; 85025

== ENCOUNTER 2023-05-19 13:51 | Emergency (ER) | payer OTHER, SELFPAY ==
[2023-05-19 14:00] VITALS: BP 123/77; PULSE 73; RESP 20; TEMP 36.5; O2SAT 100
--- NOTE | 2023-05-19 14:54 | ED.GENADULT ---
HPI - General Adult General Chief complaint: Upper Respiratory Infection Stated complaint: Sore Throat Source: patient Mode of arrival: ambulatory Limitations: no limitations History of Present Illness HPI narrative: Patient presents for evaluation of sore throat for last 2 weeks. She reports associated headaches and fatigue. No fever, chills, nausea, vomiting, cough, shortness of breath or diarrhea. Her children have symptoms that she thought to be consistent with a common cold. She took excedrin for her headaches, which seems to help. Related Data Allergies Allergy/AdvReac Type Severity Reaction Status Date / Time egg Allergy Intermediate Gastrointestinal Verified 05/19/23 14:10 Upset soy Allergy Intermediate Gastrointestinal Verified 05/19/23 14:10 Upset Review of Systems Review of Systems: CONSTITUTIONAL: Reports fatigue. Denies fever, chills, or sweats. EYES: Denies visual changes, redness, or discharge. ENT: Reports sore throat. Denies rhinorrhea, congestion, or otalgia. CARDIOVASCULAR: Denies chest pain, palpitations, or edema. RESPIRATORY: Denies cough or dyspnea. GASTROINTESTINAL: Denies abdominal pain, nausea, vomiting, or diarrhea. GENITOURINARY: Denies dysuria or hematuria. SKIN: Denies rash or itching. MUSCULOSKELETAL: Denies back pain, joint pain, or myalgia. NEUROLOGIC: Reports headache. Denies numbness, dizziness, or weakness. PSYCHIATRIC: Denies anxiety or depression. [facility] Past Medical History Medical History Anxiety Neuropathy PCOS (polycystic ovarian syndrome) Post herpetic neuralgia Surgical History Surgical History History of section x4 History of open heart surgery Age 33 years old History of tubal ligation Hx laparoscopic cholecystectomy 01/14/21 Family History Family History Mother Breast cancer Depression Father Alcoholism Social History Social History Smoking status: Never smoker Alcohol intake: never Substance use: never Substance use type: does not use Lack of Transportation: No Lack of Food: Never True Current Housing: I Have Housing Concerned About Future Housing: No Difficulty Paying Gas/Electric Bills: No Difficulty Paying for Meds: No Currently Unemployed: No Education: Bachelor's Degree Difficulty w/ Childcare or Family Care: No Living arrangements: with family Spiritual care concerns: No Exam Narrative: GENERAL: Well-appearing, well-nourished, and in no acute distress. HEAD: Normocephalic, atraumatic. EYES: PERRLA and EOMI. ENT: Nares clear, no rhinorrhea or epistaxis. Mucous membranes moist. Mild posterior pharyngeal erythema without exudate. Uvula is midline. Bilateral TMs pearly baptiste nonbulging NECK: Supple. No adenopathy or masses. No carotid bruits or JVD CHEST: Clear to auscultation. No respiratory distress. No wheezes rales or rhonchi HEART: Regular rate and rhythm. No murmur heard. Normal peripheral pulses. ABDOMEN: Soft, nontender, nondistended, normal active bowel sounds. EXTREMITIES: Normal range of motion. No edema. SKIN: Warm, dry, no rash. NEURO: No focal deficits. Alert and oriented x3. PSYCH: Normal mood and affect. Course Course Emergency Course: This is a 47-year-old female who presented for evaluation of sore throat. Rapid strep negative. I did offer to check her for mono but she declined as it would not change clinical management. Will send throat culture. Increase hydration. OTC agents for symptom management. Follow up with primary provider. Go to the ER for worsening symptoms. Pt in agreement with plan of care. Level of Care: Express Care Visit Vital Signs Vital signs: Vital Signs Temperature 36.5 C 05/19
== END 2023-05-19 14:55 | disposition home or self-care (01) ==
PROVIDERS: Emergency Provider Nurse Practitioner; PCP Family Medicine
DX: J02.9 Acute pharyngitis, unspecified (principal); E28.2 Polycystic ovarian syndrome
CPT/HCPCS: 87081; 87880; 99213; G0463

== ENCOUNTER 2024-12-19 11:39 | Outpatient (CLI) | payer OTHER, SELFPAY ==
--- OUTSIDE RECORDS SUMMARY | 2024-12-19 11:41 | XMS_ITS | Clinical Summary ---
Author Organization [facility] [employer] Address [address] [place] [address] Care Team Providers Care Intelligence Clerk Name Role Phone Carol Garrett MD Primary Care Provider [phone] Source Comments [facility],non-owned Affiliates and Associated Physician Practices is amultiple site organization consisting of ambulatory clinics and hospital sitesin [place], [place], [place] and [place]. This disclosure is being madepursuant to the Care Everywhere program and may not contain all information available regarding this patient. Last updated 18.[facility] [employer] Allergies Active Allergy Reactions Criticality Noted Date Comments Penicillins Nausea and/or Vomiting 06/23/2017 Medications * Be aware that medications may not be up to date on this document. Alwaysverify current medications with the patient. OtherIndications :BCAA Reasons: BCAA Active Misc Natural Products (OSTEO BI-FLEX ADV DOUBLE ST PO) Active ALPRAZolam (XANAX PO) Active GABAPENTIN PO Active Active Problems No known active problems Social History Tobacco Use Types Packs/Day Years Used Date Smoking Tobacco: Never Smokeless Tobacco: Never Comments Unknown Sex and Gender Information Value Date Recorded Sex Assigned at Not on file Legal Sex Female 11:53 AM CDT Gender Identity Not on file Sexual Orientation Not on file Last Filed Vital Signs Vital Sign Reading Time Taken Comments Blood Pressure 124/76 2019 11:03 AM CDT Pulse 62 2019 11:03 AM CDT Temperature 36.7 C (98 F) 2019 11:03 AM CDT Respiratory Rate 16 2019 11:03 AM CDT Oxygen Saturation 99% 2019 11:03 AM CDT Inhaled Oxygen Concentration - - Weight 88.9 kg (196 lb) 2019 11:03 AM CDT Height 162.6 cm (5' 4) 2019 11:03 AM CDT Body Mass Index 33.64 2019 11:03 AM CDT Plan of Treatment Health Maintenance Due Date Last Done Comments COLOGUARD (AGES 45-75) - COL ON CA SCREENING 1975 COLON MONITORING 1975 COLONOSCOPY - COLON CA SCREENING 1975 CT COLONOGRAPHY - COLON CA SCREENING 1975 Colorectal Cancer Screening 1975 FIT - COLON CA SCREENING 1975 FLEX SIG - COLON CA SCREENING 1975 LIPID TESTING 1975 MAMMOGRAM 1975 HIV SCREENING 12/22/1990 HEPATITIS C SCREENING 12/18/1993 DTAP/TDAP/TD VACCINES (1 - Tdap) 12/22/1994 HEPATITIS B VACCINE (1 of 3 - 19+ 3-dose series) 12/22/1994 SCREENING FOR DIABETES 07/15/2018 COVID-19 VACCINE (1 - 2023-2 5 season) 2024 DEPRESSION SCREENING 05/14/2024 INFLUENZA VACCINE (#1) 2025 ZOSTER VACCINE (1 of 2) 12/22/2025 HIB VACCINE Aged Out No longer eligi ble based on patient's age to complete this topic HPV VACCINE Aged Out No longer eligi ble based on patient's age to complete this topic MENINGOCOCCAL (Group B) VACC INE SHARED DECISION-MAKING Aged Out No longer eligibl e based on patient's age to complete this topic MENINGOCOCCAL GROUPS A/C/Y/W VACCINE Aged Out No longer eligible b ased on patient's age to complete this topic PNEUMOCOCCAL VACCINE Aged Out No long er eligible based on patient's age to complete this topic [place] [address] [place] [address] [facility] [facility] [place] Address: [address] [place] [phone] Care Teams Intelligence Clerk Relationship Specialty Start Date End Date Carol Garrett MD [address] [place] [phone] PCP - General Family Medicine 06/23/17
--- OUTSIDE RECORDS SUMMARY | 2024-12-19 11:41 | XMS_ITS | Clinical Summary ---
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 Gender Identity Not on file Sexual Orientation Not on file Plan of Treatment Health Maintenance Due Date Last Done Comments DTAP/TDAP/TD VACCINES (1 - Tdap) 12/22/1994 HEPATITIS B VACCINES (1 of 3 - 19+ 3-dose series) 12/12 HPV/Cotest (21-29) 12/22/1996 CERVICAL CANCER SCREENING 12/22/2005 HPV/Cotest (30-65) 12/22/2005 PAP SMEAR 12/22/2005 BREAST CANCER SCREENING 2015 COLORECTAL SCREENING 12/22/2020 Colorectal Cancer Screening 12/22/2020 FIT-DNA Q 3 years 12/22/2020 FIT/FOBT Q 1 year 12/22/2020 Flex Sig/CT Colonography Q 5 years 12/22/2020 INFLUENZA VACCINE (#1) 2024 Insurance [employer] OPEN ACCESS HMO Care Teams Try Out Person Relationship Specialty Start Date End Date Carol Garrett MD [address] [phone] PCP - General 04/30/15
[2024-12-19 13:07] LABS: Alanine Aminotransferase 19 U/L (6-35); Albumin Level 3.9 g/dL (3.5-5.1); Alkaline Phosphatase 39 U/L (38-126); Anion Gap 7 mmol/L (4-12); Aspartate Amino Transferase 49 U/L (14-36); Bilirubin,Total 0.4 mg/dL (0.2-1.3); Blood Urea Nitrogen 12 mg/dL (7-17); Calcium 9.3 mg/dL (8.4-10.2); Carbon Dioxide 28 mmol/L (22-30); Chloride 105 mmol/L (98-107); Cholesterol 216 mg/dL (0-200); Estimated Glomerular Filt Rate > 60; Glucose 93 mg/dL (65-110); HDL Direct 39 mg/dL; Potassium 4.6 mmol/L (3.4-5.0); Sodium 140 mmol/L (137-145); Total Protein 7.3 g/dL (6.3-8.2); Triglycerides 152 mg/dL (<150)
[2024-12-19 13:08] LABS: Hematocrit 43.8 % (37.0-47.0); Hemoglobin 14.7 g/dL (12.0-15.0); Immature Granulocyte Percent A 0.4 % (0-0.5); Lymphocytes Absolute Auto 2.29 K/mm3 (0.9-3.2); Mean Corpuscular HGB Conc 33.6 g/dl (32-36); Mean Corpuscular Hemoglobin 31.9 pg (26-34); Mean Corpuscular Volume 95.0 fl (80-100); Nucleated Red Blood Cells Absolute Auto 0.000 K/mm3 (0.0-0.012); Nucleated Red Blood Cells Perc 0.0 % (0.0-0.2); Platelet Count Result 271 k/mm3 (150-375); Red Blood Count 4.61 M/mm3 (4.2-5.4); White Blood Count 6.7 K/mm3 (4.5-10.0)
[2024-12-19 13:43] LABS: Thyroid Stimulating Hormone 2.180 uIU/mL (0.465-4.680)
[2024-12-19 14:01] LABS: Vitamin B12 235.0 pg/mL (239-931)
[2024-12-19 14:10] LABS: Hemoglobin A1C 5.3 % (<5.7)
== END 2024-12-19 11:40 | disposition home or self-care (01) ==
LOC: ANHGOSHLAB 11:39
PROVIDERS: PCP Family Medicine; Visit Provider Family Medicine
DX: Z00.00 Encounter for general adult medical examination without abnormal findings (principal); E28.2 Polycystic ovarian syndrome
CPT/HCPCS: 36415; 80053; 80061; 82607; 83036; 84443; 85025

== ENCOUNTER 2025-03-03 14:27 | Outpatient (CLI) | payer OTHER, SELFPAY ==
--- OUTSIDE RECORDS SUMMARY | 2025-03-03 18:23 | XMS_ITS | Clinical Summary ---
Author Organization [facility] [employer] Address [address] [place] [address] Care Team Providers Care Anthropological Linguist Name Role Phone Carol Garrett MD Primary Care Provider [phone] Source Comments [facility],non-owned Affiliates and Associated Physician Practices is amultiple site organization consisting of ambulatory clinics and hospital sitesin [place], [place], [place] and [place]. This disclosure is being madepursuant to the Care Everywhere program and may not contain all information available regarding this patient. Last updated 18.[facility] [employer] Allergies Active Allergy Reactions Criticality Noted Date [...] 3-dose series) 12/22/1994 SCREENING FOR DIABETES 07/15/2018 DEPRESSION SCREENING 05/14/2024 COVID-19 VACCINE (1 - 2023-2 5 season) 2025 INFLUENZA VACCINE (#1) 2025 ZOSTER VACCINE (1 [...] patient's age to complete this topic [place] [facility] [place] Address: [address] [place] [id number] [facility] [place] Address: [address] [place] [phone] Care Teams Anthropological Linguist Relationship Specialty Start Date End Date Carol Garrett MD [address] [place] [phone] PCP - General Family Medicine 06/23/17
--- OUTSIDE RECORDS SUMMARY | 2025-03-03 18:23 | XMS_ITS | Clinical Summary ---
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
== END 2025-03-03 14:28 | disposition home or self-care (01) ==
LOC: ANHBWCAUD 14:27
PROVIDERS: PCP Family Medicine; Visit Provider Family Medicine
DX: H90.3 Sensorineural hearing loss, bilateral (principal); Z82.2 Family history of deafness and hearing loss
CPT/HCPCS: 92557; 92567